=== PATIENT | female | born 1935 | race African-American/Black ===

== ENCOUNTER 2017-03-09 14:32 | Outpatient (CLI) | payer MEDICARE, MEDICAID ==
[~2017-03-09 14:32] MED LIST: COREG CR10 MG ORAL; DIGOXIN0.125 MG/2 ORAL; DIOVAN80 MG ORAL; FUROSEMIDE40 MG ORAL; ILEVRO1.7 ML OP; K-SOL20 MEQ/15 PO; LIPITOR40 MG ORAL; MECLIZINE HCL25 MG ORAL; MONTELUKAST SOD10 MG ORAL; PACERONE200 MG ORAL; POTASSIUM; PREDNISOLONE AC 1%; PREDNISOLONE ACE5 ML OP; PROTONIX40 MG ORAL; SPIRONOLACTONE1 EACH ORAL; SYNTHROID50 MCG ORAL; TYLENOL WITH C1 EAC2 ORAL; VIGAMOX; VIGAMOX1 DROP LEFT EYE; WARFARIN SODIUM2 MG ORAL; WARFARIN SODIUM3 MG ORAL; XANAX0.25 MG ORAL
--- NOTE | 2017-03-09 15:46 | Diagnostic Imaging Report ---
Indication: PAIN Technique: 2 views of the left hip Comparison: None Findings: No acute fracture. No dislocations. Joint spaces are preserved Impression: Negative
== END 2017-03-09 16:32 | disposition home or self-care (01) ==
LOC: RAD 14:32
DX: M25.552 Pain in left hip (principal); I10 Essential (primary) hypertension
CPT/HCPCS: 71020; 73502